=== PATIENT | male | born 2005 | race African-American/Black ===

== ENCOUNTER 2024-08-25 12:20 | Emergency (ER) | payer MEDICAID, OTHER ==
[~2024-08-25] VITALS: Ht 170.2 cm; Wt 54.4 kg
[2024-08-25 12:26] VITALS: O2SAT 97
[2024-08-25 13:45] LABS: BASOPHILS % 0.6 % (0.0-2.0); DIFFERENTIAL COMMENT 0; EOSINOPHILS % 0.3 % (0.0-5.0); HEMATOCRIT. 48.7 % (42.0-52.0); HEMOGLOBIN. 15.9 g/dL (14.0-18.0); LYMPHOCYTES % 15.9 % (20.0-50.0); MEAN CORPUSCULAR HEMOGLOBIN 25.5 pg (28.0-32.0); MEAN CORPUSCULAR HGB CONC 32.6 g/dL (31.0-37.0); MEAN CORPUSCULAR VOLUME 78.1 fL (80.0-94.0); MEAN PLATELET VOLUME 8.1 fl (7.4-10.4); MONOCYTES % 8.9 % (2.0-8.0); NEUTROPHILS % 74.3 % (40.0-76.0); PLATELET 284 x1000/uL (130-400); RED BLOOD CELL COUNT 6.23 mill/uL (4.7-6.1); RED CELL DISTRIBUTION WIDTH 15.1 % (11.6-14.6)
[2024-08-25 13:49] LABS: CARBON DIOXIDE 26 mEq/L (21-32); CHLORIDE 101 mEq/L (98-107); POTASSIUM 3.5 mEq/L (3.5-5.1); SODIUM 137 mEq/L (136-145)
[2024-08-25 13:51] LABS: CALCIUM 10.2 mg/dL (8.7-10.4)
[2024-08-25 13:55] LABS: GLUCOSE 76 mg/dL (70-105); UREA NITROGEN BLOOD 10 mg/dL (9-23)
[2024-08-25 15:07] LABS: THYROID STIMULATING HORMONE 2.06 uIU/mL (0.55-4.78)
[2024-08-25 15:08] LABS: T4 FREE 1.03 ng/dL (0.89-1.76)
[2024-08-25 15:28] LABS: TROPONIN I HIGH SENSITIVITY < 4 ng/L (3.0-53)
[2024-08-25] MEDS ORDERED: MAGNESIUM/ALUMINUM HYDROXIDE/SIMETHICONE 30ML UDC PO PRN (19:45)
[2024-08-25] MEDS ORDERED: CLONIDINE 0.1MG TABLET PO PRN (19:45)
[2024-08-25] MEDS ORDERED: ONDANSETRON HCL 4MG/2ML INJ IV PRN (19:45)
[2024-08-25] MEDS ORDERED: IPRATROPIUM/ALBUTEROL 0.5-3(2.5)MG/3ML NEB HHN PRN (19:45)
[2024-08-25] MEDS ORDERED: ACETAMINOPHEN 325MG TABLET PO PRN ×2 (19:45)
[2024-08-25] MEDS ORDERED: ENOXAPARIN 40MG/0.4ML SYR SUBCUT SCH (19:45)
[2024-08-25] MEDS ORDERED: DOCUSATE SODIUM 100MG CAPSULE PO PRN (19:45)
[2024-08-25] MEDS ORDERED: GUAIFENESIN 200MG/10ML SUGAR FREE UDC PO PRN (19:45)
[2024-08-25] MEDS ORDERED: ENOXAPARIN 30MG/0.3ML SYR SUBCUT SCH (20:00)
[2024-08-25 22:03] VITALS: BP 123/81; PULSE 103; RESP 16; TEMP 36.61404; O2SAT 98
== END 2024-08-26 02:15 | disposition left against medical advice (07) ==
LOC: ER 12:20 → EDBEDREQ 15:20 → EDBEDREQTM 15:20 → ER 08-26 02:15
DX: R07.9 Chest pain, unspecified (principal); R00.0 Tachycardia, unspecified; R42 Dizziness and giddiness; R06.02 Shortness of breath; I10 Essential (primary) hypertension; Z88.1 Allergy status to other antibiotic agents
CPT/HCPCS: 36415; 71045; 80048; 80320; 83835; 84439; 84443; 84484; 85025; 85379; 93005; 99291; G0480

== ENCOUNTER 2024-10-13 01:27 | Emergency (ER) | payer MEDICAID ==
[~2024-10-13] VITALS: Ht 170.2 cm; Wt 51.0 kg
[2024-10-13 01:28] VITALS: O2SAT 97
[2024-10-13 01:32] VITALS: BP 131/80; PULSE 72; RESP 18; TEMP 36.9; O2SAT 100
[2024-10-13] MEDS: ACETAMINOPHEN 325MG TABLET PO ONE (03:45)
== END 2024-10-13 05:03 | disposition home or self-care (01) ==
LOC: ER 01:27
DX: R07.89 Other chest pain (principal); F41.9 Anxiety disorder, unspecified; Z79.899 Other long term (current) drug therapy; Z88.1 Allergy status to other antibiotic agents
CPT/HCPCS: 71045; 93005; 99283